=== PATIENT | male | born 1990 | race Caucasian/White ===

== ENCOUNTER → 2016-09-08 | Outpatient (CLI) | payer OTHER ==
[~2016-09-08] MED LIST: ALLDSR60 PO
--- NOTE | 2016-09-08 15:54 | DIAGNOSTIC IMAGING REPORT ---
CHEST 2 VIEWS ROUTINE CLINICAL HISTORY: FATIGUE, CHEST PAIN DYSPNEA, PT TO LAB 1ST, SEND TO [facility] COMPARISON STUDY: 07/27/2014 FINDINGS: The bones soft tissues and hemidiaphragms are normal. The cardiomediastinal silhouette is normal. The lungs are clear. The pulmonary vasculature is normal. IMPRESSION: Negative chest. Electronically signed by: Dio Maya M.D. 09/08/2016 3:53 PM Dictated Date/Time: 09/08/2016 3:53 PM
[2016-09-08 16:29] LABS: BASO % 0.4 %; BASO ABS # 0.03 K/uL (0-0.2); COMPLETE YES; EOS % 0.8 %; HEMATOCRIT 43.2 % (42-52); IG% 0.1 %; LYMPH % 19.8 %; LYMPH ABS # 1.56 K/uL (1.2-3.4); MEAN CELL VOLUME 90.9 fL (80-100); MEAN CORPUSCULAR HEMOGLOBIN 31.2 pg (25-34); MEAN CORPUSCULAR HGB CONC 34.3 g/dl (32-36); MEAN PLATELET VOLUME 10.1 fL (7.4-10.4); MONO % 9.4 %; NEUT % 69.5 %; PLATELET COUNT 234 K/uL (130-400); RED BLOOD COUNT 4.75 M/uL (4.7-6.1); WHITE BLOOD COUNT 7.89 K/uL (4.8-10.8)
[2016-09-08 17:04] LABS: BLOOD UREA NITROGEN 13 mg/dl (7-18); BUN/CREATININE RATIO 15.4 (10-20); CALCIUM 9.1 mg/dl (8.5-10.1); CARBON DIOXIDE 27 mmol/L (21-32); CHLORIDE 103 mmol/L (98-107); CREATININE 0.83 mg/dl (0.60-1.40); GLUCOSE 103 mg/dl (70-99); POTASSIUM 3.4 mmol/L (3.5-5.1); SODIUM 139 mmol/L (136-145)
[2016-09-08 17:40] LABS: LYME DISEASE AB IGG NEG (NEG); LYME DISEASE AB IGM NEG (NEG)
== END | disposition home or self-care (01) ==
LOC: C.CPL 15:00
DX: R53.83 Other fatigue (principal); R07.9 Chest pain, unspecified; R06.00 Dyspnea, unspecified

== ENCOUNTER → 2016-09-12 | Outpatient (CLI) | payer OTHER ==
--- NOTE | 2016-09-12 16:54 | DIAGNOSTIC IMAGING REPORT ---
CT SINUSES WITH BRAIN LAB CT DOSE: 536.05 mGy.cm CLINICAL HISTORY: CHRONIC SINUSITIS TECHNIQUE: Helical images were acquired in the transverse plane. The brain lab protocol was followed. COMPARISON STUDY: None. FINDINGS: Both globes appear intact. There is no hydrocephalus. The mastoid air cells are symmetrically aerated. The middle ear cavities are well aerated. The maxillary and sphenoid sinuses are clear. There is very minor mucosal thickening within the anterior ethmoid sinus. The ostiomeatal units are patent bilaterally. The ethmoidal notches are protected. The olfactory grooves measure 5 mm bilaterally. The frontoethmoidal recesses are patent bilaterally IMPRESSION: Very minor mucosal thickening within the ethmoid sinuses. The sinuses are otherwise clear. The ostiomeatal units are patent bilaterally. Electronically signed by: Adolph Yun M.D. 09/12/2016 4:51 PM Dictated Date/Time: 09/12/2016 4:49 PM
== END | disposition home or self-care (01) ==
LOC: C.CTS 16:11
PROVIDERS: ATTEND Otolaryngology
DX: J32.9 Chronic sinusitis, unspecified (principal)